=== PATIENT | female | born 1960 | race Caucasian/White ===

== ENCOUNTER → 2023-08-30 09:23 | Outpatient (REF) | payer OTHER, SELFPAY | LOC: WDC 09:23 | PROVIDERS: ATTENDING PHYSICIAN Family Medicine | DX: Z12.31 Encounter for screening mammogram for malignant neoplasm of breast (principal) | CPT/HCPCS: 77063; 77067 ==

== ENCOUNTER → 2024-09-04 13:51 | Outpatient (REF) | payer OTHER, SELFPAY | LOC: WDC 13:51 | PROVIDERS: ATTENDING PHYSICIAN Family Medicine | DX: Z12.31 Encounter for screening mammogram for malignant neoplasm of breast (principal) | CPT/HCPCS: 77063; 77067 ==

== ENCOUNTER 2025-03-19 15:07 | Emergency (ER) | payer OTHER, SELFPAY ==
[2025-03-19 15:14] VITALS: BP 132/90
--- NOTE | 2025-03-19 17:15 | ED.GENMED ---
History of Present Illness
General
Chief Complaint: Fall
Time Seen by Provider: 03/19/25 16:20
History of Present Illness
History of Present Illness:
64-year-old female presents to the emergency department for evaluation of headache and low back pain after falling from the second rung of the ladder. States she was cleaning windows, while walking down the ladder she lost her balance and fell
backward. She landed on a carpeted floor. No LOC. Does not take blood thinners. No upper or lower extremity paresthesias.
Review of Systems
Review of Systems
Allergies reviewed?: Yes
All Other Systems: ROS reviewed and negative except as documented in HPI and ROS
Phy Exam
Physical Exam
Physical Exam:
GEN: Well appearing, NAD, WDWN
HEENT: Normocephalic and atraumatic, oral mucosa moist, no scleral icterus
Cardiac: Regular rate and rhythm, no murmurs
Lung: No respiratory distress, no tachypnea
MSK: No gross deformity or injuries. No midline cervical, thoracic, or lumbar spinal tenderness
Skin: Good color, no pallor or jaundice, no rashes
Neuro: AO x3, moves all extremities freely, upper and lower extremity strength and sensation is intact in all thomson and symmetric
Psych: Calm, cooperative
Course
Orders/Labs/Results
Orders:
Orders
03/19/25 15:19
CT Cervical Spine W/o Iv Contr Urgent
Comment:
Reason For Exam: occipital head pain s/p fall
CT Head W/o Iv Contrast Urgent
Comment:
Reason For Exam: occipital head pain s/p fall
Lumbar Spine, 2 or 3 View [CR Lumbar Spine 2 Or 3 Views] Urgent
Comment:
Reason For Exam: lower back pain
03/19/25 17:15
Acetaminophen [Tylenol] 1,000 mg PO NOW STA
Vital Signs
Initial and Last Documented VS:
Initial Vital Signs
Temp Pulse Resp BP Pulse Ox
98.9 F 95 16 132/90 98
03/19/25 15:14 03/19/25 15:14 03/19/25 15:14 03/19/25 15:14 03/19/25 15:14
Last Documented Vital Signs
Temp Pulse Resp BP Pulse Ox
98.9 F 95 16 132/90 98
03/19/25 15:14 03/19/25 15:14 03/19/25 15:14 03/19/25 15:14 03/19/25 17:15
MDM/Problems Addressed
MDM/Problems Addressed:
Patient has a benign physical exam, imaging obtained due to advanced age and degree of fall, no evidence for significant injuries on head and neck scans. X-ray of the lumbar spine independently interpreted by me is negative for acute fracture.
Discussed supportive care
*Pulse Oximetry
SaO2: 98
Oxygen Mode of Delivery: Room air
Patient hypoxic: no
*Critical Care Note
Total Time (30-74mins, 75-104mins- exclusive of procedures): Not Applicable
ED Attending Note
-
Portions of this chart may have been created with voice recognition software.� Occasional wrong word or��sound alike� substitutions may have occurred due to the inherent limitations of voice recognition software.
Discharge Plan
Departure
Patient Disposition: Home (Routine Discharge)
Date of Disposition: 03/19/25
Time of Disposition: 17:17
Patient with high blood pressure during this ER visit?: No
Discharge Problem:
Fall from ladder, Low back strain
Instructions: Preventing falls in adults
Interventions
Interventions:
*Risk Screen - Suicide Last Done: 03/19/25 15:14
*General Assessment Last Done: 03/19/25 15:14
*Neglect/Abuse Screening Last Done: 03/19/25 15:14
*ED- Fall Risk Assessment Last Done: 03/19/25 15:14
*ED COVID-19 Vaccine History Last Done: 03/19/25 15:14
*Nursing Disposition Last Done: 03/19/25 17:34
ED-Musculoskeletal Assessment Last Done: 03/19/25 17:33
ED- Neurological Assessment Last Done: 03/19/25 17:33
ED-Skin Assessment Last Done: 03/19/25 17:33
Discharge Date and Time
Discharge Date/Time: 03/19/25 17:35
Print Language: CYPRIOT
[2025-03-19] MEDS: TYLENOL 1000 MG PO (17:22)
== END 2025-03-19 17:35 | disposition home or self-care (01) ==
LOC: EMR 15:07
PROVIDERS: EMERGENCY PHYSICIAN Emergency Medicine; FAMILY PHYSICIAN Family Medicine
DX: S39.012A Strain of muscle, fascia and tendon of lower back, initial encounter (principal); W11.XXXA Fall on and from ladder, initial encounter; Y93.E9 Activity, other interior property and clothing maintenance
CPT/HCPCS: 99284; 70450; 72100; 72125